=== PATIENT | female | born 1975 | race Caucasian/White ===

== ENCOUNTER → 2019-06-17 | Outpatient (CLI) | payer OTHER ==
--- NOTE | 2019-06-17 18:10 | REP ---
Clinical: Right elbow pain . Technique: AP, lateral, bilateral oblique views of the right elbow. Findings: No acute fracture or dislocation is appreciated. Joint spaces and surrounding soft tissues appear normal. Lateral view demonstrates normal positioning to the anterior and posterior fat pads without evidence for effusion/hemarthrosis. No subcutaneous emphysema or foreign body identified. Impression: Normal right elbow radiographs. Electronically Signed by Raheel Dietrich MD 06/17/2019 06:01 P
== END ==
LOC: M LRY 17:21
PROVIDERS: ATTEND Nurse Practitioner Family
DX: M25.521 Pain in right elbow (principal)
CPT/HCPCS: 73080; G0463